=== PATIENT | male | born 1975 | race Caucasian/White ===

== ENCOUNTER → 2019-02-28 09:56 | Outpatient (BNVA) | payer MEDICAID, SELFPAY | PROVIDERS: Family Provider Internal Medicine; PCP Internal Medicine; Visit Provider Psychiatry & Neurology Psychiatry | DX: G50.0 Trigeminal neuralgia (principal); F15.21 Other stimulant dependence, in remission; F31.32 Bipolar disorder, current episode depressed, moderate; F17.200 Nicotine dependence, unspecified, uncomplicated | CPT/HCPCS: 99215 ==

== ENCOUNTER 2019-03-28 18:57 | Emergency (ER) | payer MEDICAID, SELFPAY ==
[2019-03-28 19:13] VITALS: BP 149/91; PULSE 72; RESP 16; TEMP 36.6; O2SAT 95; BMI 30.3
--- NOTE | 2019-03-28 19:13 | ED_ITS ---
Entered by Debbie Harmon, acting as scribe for Miranda Rabago MD HPI - Psych General: Chief Complaint: Psychiatric Symptoms Stated Complaint: DEPRESSION Time Seen by Provider: 03/28/19 19:11 Source: patient Mode of arrival: ambulatory History of Present Illness: HPI Narrative: 44 y/o male presents to the ED with complaint of depression. Pt states he is bipolar and has struggled with that for most of his life; however, he feels like his depression has been worse over the past few months. He has a hx of cutting but has not harmed himself in years. Tonight he made some scratches on his wist and his mother became very concerned. He is here at her request. Pt states he has no intention of harming himself or others. He is agreeable to speak with the Psychiatrist on-call. Pt denies drug/alcohol use. MD complaint: feels depressed Onset (ago): month(s) Duration: getting worse History of same: Yes Associated psychiatric symptoms: depression Associated symptoms: Reports depression Treatments prior to arrival: none Review of Systems Const: Denies: fever, chills, body aches or change in appetite Eyes: Denies: blurry vision or eye discomfort ENMT: Denies: throat pain or dental pain Card: Denies: chest pain Resp: Denies: shortness of breath GI: Denies: abdominal pain, nausea, vomiting or diarrhea : Denies: painful urination Musc: Denies: neck pain or back pain Skin/Breast: Denies: rash Neuro: Denies: headache Psych: Reports: depression [place]/Lymph: Denies: easy bruising All/Imm: Denies: hives [facility] ED PFSH: Medical History (Updated 03/28/19 @ 20:30 by Miranda Rabago MD) Amphetamine dependence, in remission Chain smoker Trigeminal neuralgia Social History (Updated 03/27/19 @ 12:43 by Eloina Leon RN) Smoking and tobacco status: current every day smoker cigarettes Packs smoked per day: 3 Years cigarettes smoked: 10 Quit status (tobacco): not considering quitting Second hand smoke exposure: No Smoking risk assessment/counseling performed?: No Reason smoking risk assessment not done: other Alcohol intake: former Year of sobriety/quit date alcohol: 2004 Desire information about alcohol rehabilitation?: No Adopted: No Caregiver/support person: No Lives independently: Yes Household members: other Details: Mother Housing: House Marital status: Single Number of children: 0 Number of grandchildren: 0 Highest education level completed: GED or Equivalent service: No Current occupational status: disabled 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 Pets and animals: Yes Pets & animals: dog(s) and bird(s) History of recent travel: No Leisure activites: other Leisure activities details: movies,dogs Sexually active: No Current gender identity: Male Florence/Cheondoism: Other Special florence needs: No Agree to transfusion: No Financial difficulty paying for basics: Hard Physical Exam Const: COMMON NORMALS: oriented x3 and healthy appearing GENERAL APPEARANCE: cooperative HENMT: COMMON NORMALS: normocephalic and head/scalp atraumatic HEAD & SCALP: normocephalic and atraumatic Eye: COMMON NORMALS: PERRL and EOMs intact bilaterally PUPIL: Yes PERRL Neck/C-Spine: COMMON NORMALS: full ROM and supple Chest: COMMONS NORMALS: inspection of chest normal and palpation of chest normal Resp: COMMON NORMALS: normal respiratory effort, no retractions, no use of accessory muscles and clear to auscultation bilaterally AUSCULTATION: clear to auscultation bilaterally Cardio: COMMON NORMALS: regular rate, regular rhythm and no murmurs RATE: regular rate RHYTHM: regular rhythm GI: COMMON NORMALS: normal to inspection, nondistended, normoactive bowel sounds, soft to palpation, non-tender and no masses PALPATION: Yes soft Extremity: COMMON NORMALS: normal to inspection and full ROM Neuro: COMMON NORMALS: oriented x3, moves all extremities and no focal motor deficits Psych: COMMON NORMALS: mental status grossly normal, thought process normal and cooperative THOUGHT PROCESS: normal thought process Skin: COMMON NORMALS: no rashes or lesions noted and no wounds GENERAL SKIN EXAM: no rashes or lesions noted MDM - Psych MDM Narrative: Medical decision making narrative: Patient presents here with depression. He is not suicidal and patient was valuated by Dr. Hayes who agrees. Patient is stable for discharge and is return if worsening. Discharge Plan Discharge Patient Disposition: Home, Self-Care Clinical Impression: Depression Qualifiers: Depression Type: unspecified Qualified Code(s): F32.9 - Major depressive disor isa, single episode, unspecified Condition: Stable Prescriptions: New doxepin 10 mg capsule 10 mg PO DAILY PRN (Reason: insomnia) Qty: 20 RF: 0 No Action baclofen 10 mg tablet 10 mg PO TID RF: 0 hydrocodone-acetaminophen 10-325 mg tablet 1 tab PO QID RF: 0 gabapentin 600 mg tablet 600 mg PO TID Qty: 90 RF: 5 lamotrigine [Lamictal] 200 mg tablet 200 mg PO QDAY Qty: 30 RF: 5 lithium carbonate 150 mg capsule 150 mg PO QAM Qty: 30 RF: 5 lithium carbonate 300 mg tablet See Rx Instructions PO .COMPLEX Qty: 150 RF: 5 Latuda 40 mg tablet 40 mg PO QAM Qty: 30 RF: 5 Discharge Orders: Discharge Order (Routine); Ordered 03/28/19 Ordered By: Miranda Rabago Referrals: Beatris Andrews MD [Primary Care Provider] - 4-7 days Discharge Diet: Advance as tolerated Discharge Activity: Resume usual activity Patient Instructions: Depression (ED) Discharge Date/Time: 03/28/19 20:45 Coding Level of Care Code ED Household Manager for Chg Fwd Exam Problem Focused The documentation recorded by the Faustino ontiveros Ashley, accurately reflects the service I personally performed and the decisions made by Gem cox Korby, MD Mar 28, 2019 18:57
--- NOTE | 2019-03-28 19:22 | PC.NURSE ---
During triage, that patient had a flat affect. Patient admitted that he was depressed and has had depressed thoughts for about 16 months ever since he lost his job. When speaking to EMS they verbalized patient has cut his arm with a razor blade and his mother called EMS and requested he be brought in for evaluation. Patient voiced that he used to cut about 20 years ago, and voiced that since he lost his job he has been more depressed and has had thoughts and a plan to kill himself. He voiced I won't until after my mother dies because she doesn't need to be worried about me more than she is . Provider notified of conversation and positive nursing screen for SI.
[2019-03-28 20:43] VITALS: BP 146/87; PULSE 74; RESP 18; O2SAT 98
== END 2019-03-28 20:45 | disposition home or self-care (01) ==
PROVIDERS: Emergency Provider Emergency Medicine; Family Provider Internal Medicine; PCP Internal Medicine
DX: F32.9 Major depressive disorder, single episode, unspecified (principal); F17.210 Nicotine dependence, cigarettes, uncomplicated
CPT/HCPCS: 99284

== ENCOUNTER → 2019-04-02 09:28 | Outpatient (BNVA) | payer MEDICAID, SELFPAY | PROVIDERS: Family Provider Internal Medicine; PCP Internal Medicine; Visit Provider Nurse Practitioner | DX: M54.9 Dorsalgia, unspecified (principal); F17.210 Nicotine dependence, cigarettes, uncomplicated; Z79.891 Long term (current) use of opiate analgesic; Z71.6 Tobacco abuse counseling | CPT/HCPCS: 99214 ==

== ENCOUNTER → 2019-04-12 11:01 | Outpatient (BNVA) | payer MEDICAID, SELFPAY | PROVIDERS: Family Provider Internal Medicine; PCP Internal Medicine; Visit Provider Psychiatry & Neurology Psychiatry | DX: Z79.899 Other long term (current) drug therapy (principal) | CPT/HCPCS: 80178 ==

== ENCOUNTER → 2019-04-17 10:41 | Outpatient (BNVA) | payer MEDICAID, SELFPAY | PROVIDERS: Family Provider Internal Medicine; PCP Internal Medicine; Visit Provider Psychiatry & Neurology Psychiatry | DX: F31.32 Bipolar disorder, current episode depressed, moderate (principal); F17.200 Nicotine dependence, unspecified, uncomplicated | CPT/HCPCS: 99214 ==

== ENCOUNTER → 2019-04-30 13:42 | Outpatient (BNVA) | payer MEDICAID, SELFPAY | PROVIDERS: Family Provider Internal Medicine; PCP Internal Medicine; Visit Provider Nurse Practitioner | DX: M54.5 Low back pain (principal); F17.210 Nicotine dependence, cigarettes, uncomplicated; Z79.891 Long term (current) use of opiate analgesic; Z71.6 Tobacco abuse counseling | CPT/HCPCS: 99213; 99214 ==

== ENCOUNTER → 2019-05-08 11:20 | Outpatient (BNVA) | payer MEDICAID, SELFPAY | PROVIDERS: Family Provider Internal Medicine; PCP Internal Medicine; Visit Provider Psychiatry & Neurology Psychiatry | DX: F31.32 Bipolar disorder, current episode depressed, moderate (principal); F15.21 Other stimulant dependence, in remission; G50.0 Trigeminal neuralgia; F17.200 Nicotine dependence, unspecified, uncomplicated | CPT/HCPCS: 99214 ==

== ENCOUNTER → 2019-06-04 08:06 | Outpatient (BNVA) | payer MEDICAID, SELFPAY | PROVIDERS: Family Provider Internal Medicine; PCP Internal Medicine; Visit Provider Psychiatry & Neurology Psychiatry | DX: F31.32 Bipolar disorder, current episode depressed, moderate (principal); F17.200 Nicotine dependence, unspecified, uncomplicated; G50.0 Trigeminal neuralgia; F15.21 Other stimulant dependence, in remission | CPT/HCPCS: 99214 ==

== ENCOUNTER → 2019-06-07 08:32 | Outpatient (BNVA) | payer MEDICAID, SELFPAY | PROVIDERS: Family Provider Internal Medicine; PCP Internal Medicine; Visit Provider Psychiatry & Neurology Psychiatry | DX: F31.32 Bipolar disorder, current episode depressed, moderate (principal); F15.21 Other stimulant dependence, in remission | CPT/HCPCS: 99214 ==

== ENCOUNTER → 2019-07-03 08:04 | Outpatient (BNVA) | payer MEDICAID, SELFPAY ==
[2019-04-02 12:23] VITALS: BP 142/94
== END ==
PROVIDERS: Family Provider Internal Medicine; PCP Internal Medicine; Visit Provider Psychiatry & Neurology Psychiatry
DX: F31.32 Bipolar disorder, current episode depressed, moderate (principal); F15.21 Other stimulant dependence, in remission; F17.200 Nicotine dependence, unspecified, uncomplicated; G50.0 Trigeminal neuralgia
CPT/HCPCS: 99213

== ENCOUNTER → 2019-07-16 08:53 | Outpatient (BNVA) | payer MEDICAID, SELFPAY ==
[2019-04-02 12:23] VITALS: BP 142/94
== END ==
PROVIDERS: Family Provider Internal Medicine; PCP Internal Medicine; Visit Provider Counselor Mental Health
DX: F31.32 Bipolar disorder, current episode depressed, moderate (principal)
CPT/HCPCS: 90834

== ENCOUNTER → 2019-07-23 08:30 | Outpatient (BNVA) | payer MEDICAID, SELFPAY ==
[2019-04-02 12:23] VITALS: BP 142/94
== END ==
PROVIDERS: Family Provider Internal Medicine; PCP Internal Medicine; Visit Provider Counselor Mental Health
DX: F31.32 Bipolar disorder, current episode depressed, moderate (principal); F43.11 Post-traumatic stress disorder, acute
CPT/HCPCS: 90834

== ENCOUNTER → 2019-07-29 07:24 | Outpatient (BNVA) | payer MEDICAID, SELFPAY ==
[2019-04-02 12:23] VITALS: BP 142/94
== END ==
PROVIDERS: Family Provider Internal Medicine; PCP Internal Medicine; Visit Provider Psychiatry & Neurology Psychiatry
DX: F31.32 Bipolar disorder, current episode depressed, moderate (principal); G50.0 Trigeminal neuralgia; F17.200 Nicotine dependence, unspecified, uncomplicated; F15.21 Other stimulant dependence, in remission
CPT/HCPCS: 99214

== ENCOUNTER → 2019-08-21 08:37 | Outpatient (BNVA) | payer MEDICAID, SELFPAY ==
[2019-04-02 12:23] VITALS: BP 142/94
== END ==
PROVIDERS: Family Provider Internal Medicine; PCP Internal Medicine; Visit Provider Counselor Mental Health
DX: F31.32 Bipolar disorder, current episode depressed, moderate (principal); F43.11 Post-traumatic stress disorder, acute
CPT/HCPCS: 90834

== ENCOUNTER → 2019-08-28 07:53 | Outpatient (BNVA) | payer MEDICAID, SELFPAY ==
[2019-04-02 12:23] VITALS: BP 142/94
== END ==
PROVIDERS: Family Provider Internal Medicine; PCP Internal Medicine; Visit Provider Psychiatry & Neurology Psychiatry
DX: F31.32 Bipolar disorder, current episode depressed, moderate (principal); F17.200 Nicotine dependence, unspecified, uncomplicated; G50.0 Trigeminal neuralgia; F15.21 Other stimulant dependence, in remission
CPT/HCPCS: 99213

== ENCOUNTER → 2019-08-30 08:39 | Outpatient (BNVA) | payer MEDICAID, SELFPAY ==
[2019-04-02 12:23] VITALS: BP 142/94
== END ==
PROVIDERS: Family Provider Internal Medicine; PCP Internal Medicine; Visit Provider Counselor Mental Health
DX: F31.32 Bipolar disorder, current episode depressed, moderate (principal)
CPT/HCPCS: 90834

== ENCOUNTER → 2019-09-04 12:33 | Outpatient (BNVA) | payer MEDICAID, SELFPAY ==
[2019-04-02 12:23] VITALS: BP 142/94
== END ==
PROVIDERS: Family Provider Internal Medicine; PCP Internal Medicine; Visit Provider Anesthesiology
DX: M54.42 Lumbago with sciatica, left side (principal); M54.41 Lumbago with sciatica, right side; Z79.891 Long term (current) use of opiate analgesic
CPT/HCPCS: 99214

== ENCOUNTER → 2019-09-10 08:25 | Outpatient (BNVA) | payer MEDICAID, SELFPAY ==
[2019-04-02 12:23] VITALS: BP 142/94
== END ==
PROVIDERS: Family Provider Internal Medicine; PCP Internal Medicine; Visit Provider Counselor Mental Health
DX: F31.32 Bipolar disorder, current episode depressed, moderate (principal); F15.21 Other stimulant dependence, in remission
CPT/HCPCS: 90834

== ENCOUNTER → 2019-10-01 08:49 | Outpatient (BNVA) | payer MEDICAID, SELFPAY ==
[2019-04-02 12:23] VITALS: BP 142/94
== END ==
PROVIDERS: Family Provider Internal Medicine; PCP Internal Medicine; Visit Provider Counselor Mental Health
DX: F31.32 Bipolar disorder, current episode depressed, moderate (principal)
CPT/HCPCS: 90834

== ENCOUNTER → 2019-10-09 10:34 | Outpatient (BNVA) | payer MEDICAID, SELFPAY ==
[2019-04-02 12:23] VITALS: BP 142/94
== END ==
PROVIDERS: Family Provider Internal Medicine; PCP Internal Medicine; Visit Provider Counselor Mental Health
DX: F31.32 Bipolar disorder, current episode depressed, moderate (principal)
CPT/HCPCS: 90834

== ENCOUNTER → 2019-10-17 09:08 | Outpatient (BNVA) | payer MEDICAID, SELFPAY ==
[2019-04-02 12:23] VITALS: BP 142/94
== END ==
PROVIDERS: Family Provider Internal Medicine; PCP Internal Medicine; Visit Provider Counselor Mental Health
DX: F31.32 Bipolar disorder, current episode depressed, moderate (principal)
CPT/HCPCS: 90834

== ENCOUNTER → 2019-10-28 07:51 | Outpatient (BNVA) | payer MEDICAID, SELFPAY ==
[2019-04-02 12:23] VITALS: BP 142/94
== END ==
PROVIDERS: Family Provider Internal Medicine; PCP Internal Medicine; Visit Provider Psychiatry & Neurology Psychiatry
DX: F31.32 Bipolar disorder, current episode depressed, moderate (principal); F17.200 Nicotine dependence, unspecified, uncomplicated; G50.0 Trigeminal neuralgia; F15.21 Other stimulant dependence, in remission
CPT/HCPCS: 99213

== ENCOUNTER → 2019-10-31 11:11 | Outpatient (BNVA) | payer MEDICAID, SELFPAY ==
[2019-04-02 12:23] VITALS: BP 142/94
== END ==
PROVIDERS: Family Provider Internal Medicine; PCP Internal Medicine; Visit Provider Nurse Practitioner
DX: M54.42 Lumbago with sciatica, left side (principal); M54.41 Lumbago with sciatica, right side; M19.90 Unspecified osteoarthritis, unspecified site; G50.0 Trigeminal neuralgia; F17.210 Nicotine dependence, cigarettes, uncomplicated; Z79.891 Long term (current) use of opiate analgesic; Z71.6 Tobacco abuse counseling
CPT/HCPCS: 99213; 99214

== ENCOUNTER → 2019-11-08 08:53 | Outpatient (BNVA) | payer MEDICAID, SELFPAY ==
[2019-04-02 12:23] VITALS: BP 142/94
== END ==
PROVIDERS: Family Provider Internal Medicine; PCP Internal Medicine; Visit Provider Counselor Mental Health
DX: F31.32 Bipolar disorder, current episode depressed, moderate (principal)
CPT/HCPCS: 90832

== ENCOUNTER → 2019-11-20 09:12 | Outpatient (BNVA) | payer MEDICAID, SELFPAY ==
[2019-04-02 12:23] VITALS: BP 142/94
== END ==
PROVIDERS: Family Provider Internal Medicine; PCP Internal Medicine; Visit Provider Counselor Mental Health
DX: F31.32 Bipolar disorder, current episode depressed, moderate (principal)
CPT/HCPCS: 90834

== ENCOUNTER → 2019-12-02 09:09 | Outpatient (BNVA) | payer MEDICAID, SELFPAY ==
[2019-04-02 12:23] VITALS: BP 142/94
== END ==
PROVIDERS: Family Provider Internal Medicine; PCP Internal Medicine; Visit Provider Counselor Mental Health
DX: F31.32 Bipolar disorder, current episode depressed, moderate (principal)
CPT/HCPCS: 90834

== ENCOUNTER → 2019-12-03 12:32 | Outpatient (BNVA) | payer MEDICAID, SELFPAY ==
[2019-04-02 12:23] VITALS: BP 142/94
== END ==
PROVIDERS: Family Provider Internal Medicine; PCP Internal Medicine; Visit Provider Anesthesiology
DX: M54.5 Low back pain (principal); F17.210 Nicotine dependence, cigarettes, uncomplicated; Z79.891 Long term (current) use of opiate analgesic
CPT/HCPCS: 99213; 99214

== ENCOUNTER → 2019-12-05 11:46 | Outpatient (BNVA) | payer MEDICAID, SELFPAY ==
[2019-04-02 12:23] VITALS: BP 142/94
== END ==
PROVIDERS: Family Provider Internal Medicine; PCP Internal Medicine; Visit Provider Psychiatry & Neurology Psychiatry
DX: Z79.899 Other long term (current) drug therapy (principal)
CPT/HCPCS: 80048; 80178; 84443

== ENCOUNTER → 2019-12-09 08:55 | Outpatient (BNVA) | payer MEDICAID, SELFPAY ==
[2019-04-02 12:23] VITALS: BP 142/94
== END ==
PROVIDERS: Family Provider Internal Medicine; PCP Internal Medicine; Visit Provider Counselor Mental Health
DX: F31.32 Bipolar disorder, current episode depressed, moderate (principal)
CPT/HCPCS: 90834

== ENCOUNTER → 2019-12-25 08:15 | Outpatient (BNVA) | payer MEDICAID, SELFPAY ==
[2019-04-02 12:23] VITALS: BP 142/94
== END ==
PROVIDERS: Family Provider Internal Medicine; PCP Internal Medicine; Visit Provider Psychiatry & Neurology Psychiatry
DX: F31.75 Bipolar disorder, in partial remission, most recent episode depressed (principal); G50.0 Trigeminal neuralgia; F17.200 Nicotine dependence, unspecified, uncomplicated
CPT/HCPCS: 99213

== ENCOUNTER → 2019-12-27 09:32 | Outpatient (BNVA) | payer MEDICAID, SELFPAY ==
[2019-04-02 12:23] VITALS: BP 142/94
== END ==
PROVIDERS: Family Provider Internal Medicine; PCP Internal Medicine; Visit Provider Counselor Mental Health
DX: F31.75 Bipolar disorder, in partial remission, most recent episode depressed (principal)
CPT/HCPCS: 90834

== ENCOUNTER → 2020-01-30 08:12 | Outpatient (BNVA) | payer MEDICAID, SELFPAY ==
[2019-04-02 12:23] VITALS: BP 142/94
== END ==
PROVIDERS: Family Provider Internal Medicine; PCP Internal Medicine; Visit Provider Anesthesiology
DX: M54.5 Low back pain (principal); F17.210 Nicotine dependence, cigarettes, uncomplicated; Z79.891 Long term (current) use of opiate analgesic
CPT/HCPCS: 99213; 99214

== ENCOUNTER → 2020-03-25 09:08 | Outpatient (BNVA) | payer MEDICAID, SELFPAY ==
[2019-04-02 12:23] VITALS: BP 142/94
== END ==
PROVIDERS: Family Provider Internal Medicine; PCP Internal Medicine; Visit Provider Psychiatry & Neurology Psychiatry
DX: F31.76 Bipolar disorder, in full remission, most recent episode depressed (principal); G50.0 Trigeminal neuralgia; Z79.899 Other long term (current) drug therapy
CPT/HCPCS: 99214

== ENCOUNTER → 2020-03-26 09:01 | Outpatient (BNVA) | payer MEDICAID, SELFPAY ==
[2019-04-02 12:23] VITALS: BP 142/94
== END ==
PROVIDERS: Family Provider Internal Medicine; PCP Internal Medicine; Visit Provider Anesthesiology
DX: M54.5 Low back pain (principal); Z79.891 Long term (current) use of opiate analgesic
CPT/HCPCS: 99213

== ENCOUNTER → 2020-05-11 14:06 | Outpatient (BNVA) | payer MEDICAID, SELFPAY ==
[2019-04-02 12:23] VITALS: BP 142/94
== END ==
PROVIDERS: Family Provider Internal Medicine; PCP Internal Medicine; Visit Provider Psychiatry & Neurology Psychiatry
DX: Z79.899 Other long term (current) drug therapy (principal)
CPT/HCPCS: 80048; 80178

== ENCOUNTER → 2020-06-03 08:01 | Outpatient (BNVA) | payer MEDICAID, SELFPAY ==
[2020-05-22 14:03] VITALS: BP 142/94
== END ==
PROVIDERS: Family Provider Internal Medicine; PCP Internal Medicine; Visit Provider Anesthesiology
DX: M54.5 Low back pain (principal); Z79.891 Long term (current) use of opiate analgesic
CPT/HCPCS: 99213

== ENCOUNTER → 2020-07-02 14:49 | Outpatient (BNVA) | payer MEDICAID, SELFPAY ==
[2020-06-03 08:22] VITALS: BP 142/94
== END ==
PROVIDERS: Family Provider Internal Medicine; PCP Internal Medicine; Visit Provider Psychiatry & Neurology Psychiatry
DX: F31.76 Bipolar disorder, in full remission, most recent episode depressed (principal); F15.21 Other stimulant dependence, in remission; G47.00 Insomnia, unspecified
CPT/HCPCS: 99214

== ENCOUNTER → 2020-07-29 07:51 | Outpatient (BNVA) | payer MEDICAID, SELFPAY ==
[2020-06-03 08:22] VITALS: BP 142/94
== END ==
PROVIDERS: Family Provider Internal Medicine; PCP Internal Medicine; Visit Provider Anesthesiology
DX: M54.5 Low back pain (principal); Z79.891 Long term (current) use of opiate analgesic
CPT/HCPCS: 99213

== ENCOUNTER → 2020-08-27 13:05 | Outpatient (BNVA) | payer MEDICAID, SELFPAY ==
[2020-06-03 08:22] VITALS: BP 142/94
== END ==
PROVIDERS: Family Provider Internal Medicine; PCP Internal Medicine; Visit Provider Psychiatry & Neurology Psychiatry
DX: F31.76 Bipolar disorder, in full remission, most recent episode depressed (principal); F15.21 Other stimulant dependence, in remission; G47.00 Insomnia, unspecified
CPT/HCPCS: 99214

== ENCOUNTER → 2020-09-25 09:28 | Outpatient (BNVA) | payer MEDICAID, SELFPAY ==
[2020-06-03 08:22] VITALS: BP 142/94
== END ==
PROVIDERS: Family Provider Internal Medicine; PCP Internal Medicine; Visit Provider Anesthesiology
DX: G89.29 Other chronic pain (principal); M54.5 Low back pain; F17.210 Nicotine dependence, cigarettes, uncomplicated; Z79.891 Long term (current) use of opiate analgesic
CPT/HCPCS: 99213

== ENCOUNTER → 2020-11-03 10:29 | Outpatient (BNVA) | payer MEDICAID, SELFPAY ==
[2020-06-03 08:22] VITALS: BP 142/94
== END ==
PROVIDERS: Family Provider Internal Medicine; PCP Internal Medicine; Visit Provider Psychiatry & Neurology Psychiatry
DX: F31.76 Bipolar disorder, in full remission, most recent episode depressed (principal); Z79.899 Other long term (current) drug therapy; Z03.89 Encounter for observation for other suspected diseases and conditions ruled out; F15.21 Other stimulant dependence, in remission
CPT/HCPCS: 99214

== ENCOUNTER → 2020-11-24 10:00 | Outpatient (BNVA) | payer MEDICAID, SELFPAY ==
[2020-06-03 08:22] VITALS: BP 142/94
== END ==
PROVIDERS: Family Provider Internal Medicine; PCP Internal Medicine; Visit Provider Anesthesiology
DX: G89.29 Other chronic pain (principal); M54.50 Low back pain, unspecified; F17.210 Nicotine dependence, cigarettes, uncomplicated; Z79.891 Long term (current) use of opiate analgesic
CPT/HCPCS: 99213

== ENCOUNTER → 2021-03-04 08:34 | Outpatient (BNVA) | payer MEDICAID, SELFPAY ==
[2020-06-03 08:22] VITALS: BP 142/94
== END ==
PROVIDERS: Family Provider Internal Medicine; PCP Internal Medicine; Visit Provider Anesthesiology
DX: G89.29 Other chronic pain (principal); M54.50 Low back pain, unspecified; F17.200 Nicotine dependence, unspecified, uncomplicated; Z79.891 Long term (current) use of opiate analgesic
CPT/HCPCS: 99213

== ENCOUNTER 2023-05-10 17:23 | Emergency (ER) | payer MEDICAID, SELFPAY ==
[2020-06-03 08:22] VITALS: BP 142/94
[2023-05-10 17:27] VITALS: BP 167/102; PULSE 108; RESP 20; TEMP 36.8; O2SAT 98
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
--- NOTE | 2023-05-10 17:52 | XRR_ITS ---
PROCEDURE INFORMATION: Exam: XR Right Shoulder Exam date and time: 05/10/2023 5:54 PM Age: 48 years old Clinical indication: Pain; Shoulder; Right TECHNIQUE: Imaging protocol: Radiologic exam of the right shoulder. Views: 2 or more views. COMPARISON: No relevant prior studies available. FINDINGS: Bones/joints: Normal. Soft tissues: Normal. XR/XR shoulder RT min 2V* [id number] IMPRESSION: No acute findings.
== END 2023-05-10 18:18 | disposition home or self-care (01) ==
PROVIDERS: Emergency Provider Physician Assistant
DX: G89.29 Other chronic pain (principal); M25.511 Pain in right shoulder; Z87.891 Personal history of nicotine dependence
CPT/HCPCS: 73030; 99283

== ENCOUNTER 2024-07-24 13:33 | Inpatient (IN) | payer SELFPAY ==
[2020-06-03 08:22] VITALS: BP 142/94
[2024-07-24 13:49] VITALS: BP 166/91; PULSE 81; RESP 16; TEMP 36.6; O2SAT 98; BMI 27.8
--- NOTE | 2024-07-24 14:16 | ED.C_ITS ---
HPI - Psych 2 General: Chief Complaint: Psychiatric Symptoms Stated Complaint: SI Time Seen by Provider: 07/24/24 14:04 History of Present Illness: 49-year-old male presents with suicidal thoughts. 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 Patient reports that since his sister took his life in February he has had worsening suicidal ideations. Patient comes in today because he would like to get help because he reports that he thought of hanging himself and actually was hanging up a noose and realized that he was doing an. He better because he gets some help. Would like to be admitted for inpatient treatment. Associated symptoms: Reports depression and suicidal ideation; Deny homicidal ideation Related Data Home Medications ?Medication ?Instructions ?Recorded ?Confirmed No Known Home Medications 07/24/2407/14 Allergies Allergy/AdvReac Type Severity Reaction Status Date / Time No Known Allergies Allergy Verified 07/24/24 13:53 Review of Systems 2 Const: Denies: fever(s) or chills Card: Denies: chest pain or palpitations Resp: Denies: dyspnea GI: Denies: abdominal pain, nausea or vomiting Neuro: Denies: headache(s) Psych: Reports: depression, sleeping less and suicidal ideation; Denies: homicidal ideation PFSH ED 2 PFSH: Medical History 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 Chronic low back pain Osteoarthritis Encounter for long-term opiate analgesic use Opioid contract exists Trigeminal neuralgia Chain smoker Amphetamine dependence, in remission Surgical History Hx of lithotripsy Family History Mother Hypertension Hyperlipidemia Diabetes Father , in 2009 from brain stem cancer Lung disease emphysema Cancer Social History Quit status (tobacco/nicotine): has quit using Year quit tobacco: 2020 Second hand smoke exposure: No Alcohol intake: former Year of sobriety/quit date alcohol: 2004 Substance/Drug Use: never Adopted: No Caregiver/support person: No Lives independently: Yes Household members: other Details: Mother Housing: House Marital status: Single Number of children: 0 Number of grandchildren: 0 Highest education level completed: GED or Equivalent service: No Current occupational status: disabled 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 Pets and animals: Yes Pets & animals: dog(s) and bird(s) Leisure activites: other Leisure activities details: movies,dogs Sexually active: No Do you think of yourself as: Straight/Heterosexual Current gender identity: Male Florence/Latter Day: Other Special florence needs: No Agree to transfusion: No Physical Exam 2 Const: COMMON NORMALS: no acute distress, patient oriented x3, healthy appearing, alert and well nourished Resp: COMMON NORMALS: normal respiratory effort and clear to auscultation bilaterally AUSCULTATION: clear to auscultation bilaterally Cardio: COMMON NORMALS: regular rate and regular rhythm RATE: regular rate RHYTHM: regular rhythm Extremity: COMMON NORMALS: normal to inspection and capillary refill normal Neuro: COMMON NORMALS: patient oriented x3, moves all extremities, no focal motor deficits, no sensory deficits noted and gait normal S ENSORIUM/ORIENTATION: Yes alert Psych: COMMON NORMALS: Normal thought process present and speech normal A PPEARANCE: Yes grossly normal ATTITUDE: Yes calm SPEECH: Yes normal speech MOOD & AFFECT: Yes euthymic mood THOUGHT PROCESS: Normal thought process present THOUGHT CONTENT: Yes Suicidality present INSIGHT: Good insight present (Psych) JUDGEMENT: Good judgement present (Psych) Course 2 Vital Signs: Vital signs: Vital Signs Temperature 97.8 F 07/24/24 13:49 Pulse Rate 81 07/24/24 13:49 Respiratory Rate 16 07/24/24 13:49 Blood Pressure 166/91 07/24/24 13:49 Pulse Oximetry 98 07/24/24 13:49 Oxygen Delivery Me thod Room Air 07/24/24 13:49 MDM - Psych Medical Decision Making Patient was medically cleared for admission to behavioral health unit. I discussed case with Dr. Major who accepted patient. Patient was stable upon transfer to behavioral health. Lab Data 07/24/24 14:12 07/24/24 14:12 Laboratory Results WBC 6.97 10^3/uL (3.29-11.43) 07/24/24 14:12 RBC 4.47 10^6/uL (3.85-5.65) 07/24/24 14:12 Hgb 14.30 g/dL (11.27-16.99) 07/24/24 14:12 Hct 42.3 % (37-53) 07/24/24 14:12 MCV 94.6 fl (82-101) 07/24/24 14:12 MCH 32.0 pg (27-33) 07/24/24 14:12 MCHC 33.8 g/dL (30-55) 07/24/24 14:12 RDW 12.8 % (12.1-15.1) 07/24/24 14:12 Plt Count 221 10^3/cmm (157-399) 07/24/24 14:12 MPV 8.4 fL (7.4-10.4) 07/24/24 14:12 Neut % (Auto) 64.3 % 07/24/24 14:12 Lymph % (Auto) 27.4 % 07/24/24 14:12 [place] % (Auto) 6.3 % 07/24/24 14:12 Eos % (Auto) 1.0 % 07/24/24 14:12 Baso % (Auto) 0.7 % 07/24/24 14:12 Neut # (Auto) 4.48 10^3/uL (1.8-7.7) 07/24/24 14:12 Lymph # (Auto) 1.9 10^3/uL (0.8-4.8) 07/24/24 14:12 [place] # (Auto) 0.4 10^3/uL (0.2-0.9) 07/24/24 14:12 Eos # (Auto) 0.1 10^3/uL (0.0-0.8) 07/24/24 14:12 Baso # (Auto) 0.1 10^3/uL (0.0-0.1) 07/24/24 14:12 Nucleated RBC % (auto) 0 % 07/24/24 14:12 Nucleated RBCs # 0.0 /100WBC 07/24/24 14:12 Sodium 139 mmol/L (136-145) 07/24/24 14:12 Potassium 4.0 mmol/L (3.5-5.1) 07/24/24 14:12 Chloride 103 mmol/L (98-107) 07/24/24 14:12 Carbon Dioxide 24 mmol/L (22-29) 07/24/24 14:12 Anion Gap 16.0 (5-19) 07/24/24 14:12 BUN 22 mg/dL (6-20) H 07/24/24 14:12 Creatinine 0.7 mg/dL (0.7-1.2) 07/24/24 14:12 GFR Calculation 118.9 mL/min (90-130) 07/24/24 14:12 Glucose 129 mg/dL (65-115) H 07/24/24 14:12 Calculated Osmolality 293 mOsm/kg (285-295) 07/24/24 14:12 Calcium 9.4 mg/dL (8.5-10.5) 07/24/24 14:12 Total Bilirubin 0.2 mg/dL (0.15-1.2) 07/24/24 14:12 AST 18 U/L (0-40) 07/24/24 14:12 ALT 19 U/L (0-41) 07/24/24 14:12 Alkaline Phosphatase 87 U/L (40-130) 07/24/24 14:12 Total Protein 7.0 g/dL (6.6-8.7) 07/24/24 14:12 Albumin 4.0 g/dL (3.5-5.2) 07/24/24 14:12 Globulin 3.0 g/dL (1.3-4.6) 07/24/24 14:12 Urine Color Yellow (Yellow) 07/24/24 15:08 Urine Appearance Clear (CLEAR) 07/24/24 15:08 Urine pH 6.5 (5-7) 07/24/24 15:08 Ur Specific [place] 1.020 (1.005-1.030) 07/24/24 15:08 Urine Protein Negative (Negative) 07/24/24 15:08 Urine Glucose (UA) Negative (Normal) 07/24/24 15:08 Urine Ketones Negative (Negative) 07/24/24 15:08 Urine Blood Negative (Negative) 07/24/24 15:08 Urine Nitrate Negative (Negative) 07/24/24 15:08 Urine Bilirubin Negative (Negative) 07/24/24 15:08 Urine Urobilinogen 0.2 mg/dL (Negative) 07/24/24 15:08 Ur Leukocyte Esterase Negative (Negative) 07/24/24 15:08 Urine RBC 0-2 /hpf (0-2) 07/24/24 15:08 Urine WBC 0-5 /hpf (0-5) 07/24/24 15:08 Ur Squamous Epith Cells 0-5 /hpf (0-5) 07/24/24 15:08 Amorphous Sediment Not Reportable 07/24/24 15:08 Urine Bacteria None seen /hpf (NONE) 07/24/24 15:08 Hyaline Casts 0-4 /lpf H 07/24/24 15:08 Salicylates < 0.3 mg/dL (3-10) L 07/24/24 14:12 Urine Opiates Screen Negative ng/mL (Negative) 07/24/24 15:08 Acetaminophen < 5.0 ug/mL (10-30) L 07/24/24 14:12 Ur Barbiturates Screen Negative ng/mL (Negative) 07/24/24 15:08 Ur Phencyclidine Scrn Negative ng/mL (Negative) 07/24/24 15:08 Ur Amphetamines Screen Negative ng/mL (Negative) 07/24/24 15:08 U Benzodiazepines Scrn Negative ng/mL (Negative) 07/24/24 15:08 [place] 0.1 mmol/L (0.6-1.2) L 07/24/24 14:29 Urine Cocaine Screen Negative ng/mL (Negative) 07/24/24 15:08 U Marijuana (THC) Screen Negative ng/mL (Negative) 07/24/24 15:08 Ethyl Alcohol < 10 mg/dL (0-10) 07/24/24 14:12 No radiology studies performed this visit Discharge Plan Discharge Patient Disposition: Admitted As Inpatient Clinical Impression: Suicidal ideation, Depression Condition: Stable Coding Level of Care Code ED Wheel Alignment Technician for David Evans
[2024-07-24 14:31] LABS: Basophils # 0.1 10^3/uL (0.0-0.1); Basophils % 0.7 %; Eosinophils # 0.1 10^3/uL (0.0-0.8); Hematocrit 42.3 % (37-53); Lymphocytes # 1.9 10^3/uL (0.8-4.8); Lymphocytes % 27.4 %; Mean Corpuscular HGB Conc 33.8 g/dL (30-55); Mean Corpuscular Volume 94.6 fl (82-101); Mean Platelet Volume 8.4 fL (7.4-10.4); Monocytes # 0.4 10^3/uL (0.2-0.9); Monocytes % 6.3 %; Neutrophils # 4.48 10^3/uL (1.8-7.7); Neutrophils % 64.3 %; Nucleated Red Blood Cells % 0 %; Platelet Count 221 10^3/cmm (157-399); Red Blood Count 4.47 10^6/uL (3.85-5.65); Red Cell Distribution Width 12.8 % (12.1-15.1); White Blood Count 6.97 10^3/uL (3.29-11.43)
--- NOTE | 2024-07-24 14:33 | PC.PHAR ---
Pt states he no longer takes any medications. Last filled medications in [id number]. Removed from med list are the following: Baclofen 10mg tid 03/04/21 Benadryl 25mg 2 q hs prn sleep Fluoxetine 20mg daily 11/03/20 Gabapentin 600mg tid 11/03/20 [place] 10-325 5 x daily 03/04/21 [place] carb 600mg bid 11/03/20 [place] carb 150mg 1qam and 2 at hs 11/03/20 Nicotine patch 21mg/ daily 03/26/20
[2024-07-24 14:48] LABS: Acetaminophen < 5.0 ug/mL (10-30); Alanine Aminotransferase 19 U/L (0-41); Alcohol Level < 10 mg/dL (0-10); Alkaline Phosphatase 87 U/L (40-130); Aspartate Amino Transferase 18 U/L (0-40); Blood Urea Nitrogen 22 mg/dL (6-20); Calcium 9.4 mg/dL (8.5-10.5); Carbon Dioxide 24 mmol/L (22-29); Chloride 103 mmol/L (98-107); Creatinine Clr Calc Pharmacy 139.6622; Glomerular Filtration Rate 118.9 mL/min (90-130); Glucose 129 mg/dL (65-115); Osmolality Calculated 293 mOsm/kg (285-295); Salicylate < 0.3 mg/dL (3-10); Sodium 139 mmol/L (136-145); Total Bilirubin 0.2 mg/dL (0.15-1.2)
[2024-07-24 15:00] LABS: Lithium 0.1 mmol/L (0.6-1.2)
[2024-07-24 15:17] LABS: Bilirubin Urine Negative (Negative); Blood Urine Negative (Negative); Glucose Urine UA Negative (Normal); Ketones Urine Negative (Negative); Leukocyte Esterase Urine Negative (Negative); Nitrate Urine Negative (Negative); Protein Urine Negative (Negative); Urine Appearance Clear (CLEAR); Urine Color Yellow (Yellow); Urobilinogen Urine 0.2 mg/dL (Negative); pH Urine 6.5 (5-7)
[2024-07-24 15:22] LABS: Add Urine Microscopic? YES; Bacteria Urine None Seen /hpf; Hyaline Casts Urine 0-4 /lpf; RBC Urine 0-2 /hpf (0-2); Squamous Epithelial Cell Urine 0-5 /hpf (0-5); WBC Urine 0-5 /hpf (0-5)
[2024-07-24 15:24] LABS: Amphetamines Screen Urine Negative (Negative); Barbiturates Screen Urine Negative (Negative); Benzodiazepines Screen Urine Negative (Negative); Cocaine Screen Urine Negative (Negative); Opiate Screen Urine Negative (Negative); PCP Screen Urine Negative (Negative); THC Screen Urine Negative (Negative)
[2024-07-24 15:28] LABS: Add Urine Culture? No
[2024-07-24 16:33] VITALS: BP 153/84; PULSE 75; O2SAT 97
--- NOTE | 2024-07-24 16:34 | PC.NURSE ---
medically cleared by dr. pickett, and provider aware of vitals and verbalized go ahead to take to unit.
[2024-07-24 16:40] VITALS: BP 153/89; PULSE 69; RESP 18; TEMP 36.8; O2SAT 97
[2024-07-24] MEDS: nicotine 4 mg lozenge MUCOUS MEM ×2 (17:24→19:26)
[2024-07-24 19:29] VITALS: BP 139/85; PULSE 79; RESP 18; TEMP 36.6; O2SAT 95
[2024-07-24] MEDS: hyDROXYzine 25 mg Capsule 50 MG PO (20:15)
[2024-07-24] MEDS: trazodone 50 mg Tablet PO (20:15)
[2024-07-25 06:00] VITALS: BP 141/87; PULSE 64; RESP 16; O2SAT 96
--- NOTE | 2024-07-25 09:56 | P.NPUHP_ITS ---
Providers/Chief Complaint 2 Admitting Physician: Jeronimo Major MD Chief Complaint: SI HPI NPU History of Present Illness Otto Holden is a 49 year old male admitted with a history of bipolar 1 disorder who had initially presented stating that he had been having increased thoughts about suicide. He had reported that he had had thoughts of hanging himself to the emergency room doctor but states that he is currently not suicidal but needed to get some help. He had requested that he be allowed to leave AGAINST MEDICAL ADVICE. He states that he just simply wants to go home. Previous records were reviewed. He had reported that he is having mixed mood symptoms with a combination of depressed mood and decreased need for sleep. He had reported a past history of treatment with medications but stated that he was hesitant about taking his previous medications prescribed at the [facility] here 3 years ago. He reports currently no suicidal ideation. He reports that he had been able to sleep last night for the first time in several days. He had reported that he at times would struggle with increased paranoia. He reports no active substance use or alcohol use. He had denied any homicidal ideation. He reports that he has been working helping manage his mother and they are home in [facility]. He denies any racing thoughts at this time. He has reported feeling more suspicious about others' intentions but states that he has been isolating himself. The urine drug screen was negative for illicit drugs or alcohol. Inpatient psychiatric history: Has a history of multiple inpatient hospitalizations but none in more than 5 years. Outpatient psychiatric history: Previously followed at the [facility] in 2021. He is currently not receiving services although there is a prior history of documentation of bipolar 1 disorder with mixed mood symptoms. Substance abuse history: He denies any use of drugs or alcohol but there does appear to be a past history of amphetamine abuse. Medical history: History of right jaw surgery, history of trigeminal neuralgia Medications: None Allergies: No known drug allergies Legal history: None reported Social history: He was raised in [place] and previously lived in [place]. He currently lives in [place] with his mother. 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 He had a biological father who had a history of alcoholism. He was raised in a stable household with his 6 older sisters 2 of whom are now . He had denied any history of sexual physical or emotional abuse. He has a college education and is currently working at home helping his mother around the home. 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 Chronic low back pain Osteoarthritis Encounter for long-term opiate analgesic use Opioid contract exists Trigeminal neuralgia Chain smoker Amphetamine dependence, in remission Surgical History Hx of lithotripsy Family History Mother Hypertension Hyperlipidemia Diabetes Father , in 2009 from brain stem cancer Lung disease emphysema Cancer Social History Quit status (tobacco/nicotine): has quit using Year quit tobacco: 2020 Second hand smoke exposure: No Alcohol intake: former Year of sobriety/quit date alcohol: 2004 Substance/Drug Use: never Adopted: No Caregiver/support person: No Lives independently: Yes Household members: other Details: Mother Housing: House Marital status: Single Number of children: 0 Number of grandchildren: 0 Highest education level completed: GED or Equivalent service: No Current occupational status: disabled 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 His hygiene was fair. The patient was cooperative on interview but insisted that he be allowed to go home as he had expressed ideas of being here against his will. He had minimized any suicidal or homicidal ideation. His mood was described as okay. His affect was somewhat irritable and mood incongruent. There was no evidence of delusional thinking. He did not appear to be responding to internal stimuli. He was alert and oriented to person, place, time, and situation. His attention span appeared poor. His insight is poor. His judgment is fair. His impulse control appeared adequate. Vitals/I&O/Wt Last Vital Signs Temp 97.9 F 07/24/24 19:29 Pulse 64 07/25/24 06:00 Resp 16 07/25/24 06:00 BP 141/87 07/25/24 06:00 Pulse Ox 96 07/25/24 06:00 O2 Del Method Room Air 07/24/24 16:43 Weight last 48 hrs Weight 88.224 kg Data NPU 07/24/24 14:12 07/24/24 14:12 A&P Assessment and plan (1) Bipolar disorder, current episode hypomanic: Plan 49-year-old male presenting with manic symptoms requesting to leave AGAINST MEDICAL ADVICE and not endorsing suicidal ideation currently with a plan to follow-up at outpatient at [facility] [place] who he states he is already contacted. He had initially been agreeable to considering medication for sleep as well as for mood stabilization but asked that he be able to leave AGAINST MEDICAL ADVICE. This will be granted. The patient understood that he would not receive this medication as it had been suggested that he remain here in the hospital. 1. Patient to leave AMA. Patient will not be placed under involuntary hold. PDMP PDMP Reviewed: Not Reviewed Attestations NPU 2 Medical Necessity Statement*: Patient will leave AMA. Coding Level of Care Code Acute Code for [facility] Fw Diagnoses Bipolar disorder, current episode hypomanic F31.0
[2024-07-25 10:12] VITALS: BP 141/87; PULSE 64; RESP 16; O2SAT 96
== END 2024-07-25 10:16 | disposition left against medical advice (07) | DRG 885 ==
LOC: ER 15:03 → NP 16:01
PROVIDERS: Admitting Provider Psychiatry & Neurology Psychiatry; Emergency Provider Student in an Organized Health Care Education/Training Program; Visit Provider Psychiatry & Neurology Psychiatry
DX: F31.0 Bipolar disorder, current episode hypomanic (principal); Z53.29 Procedure and treatment not carried out because of patient's decision for other reasons
CPT/HCPCS: 36415; 80053; 80178; 80306; 80307; 81001; 85025; 99285; J9999